=== PATIENT | female | born 1995 | race African-American/Black ===

== ENCOUNTER 2023-06-02 19:33 | Outpatient (REF) | payer MEDICAID, SELFPAY ==
[2023-06-03 07:16] LABS: CT PCR NOT DETECTED (Not Detect.); NG PCR NOT DETECTED (Not Detect.)
[2023-06-05 11:29] LABS: BV Int Neg Control Negative (Negative); BV Int Pos Control Positive (Positive)
== END 2023-06-02 19:34 | disposition home or self-care (01) ==
LOC: HO.HHCLNP 19:33
PROVIDERS: Visit Provider Family Medicine
DX: N93.9 Abnormal uterine and vaginal bleeding, unspecified (principal); Z20.2 Contact with and (suspected) exposure to infections with a predominantly sexual mode of transmission
CPT/HCPCS: 0353U; 87480; 87510; 87660

== ENCOUNTER 2023-06-05 15:22 | Outpatient (REF) | payer MEDICAID, SELFPAY | END 2023-06-05 15:23 | disposition home or self-care (01) | LOC: HO.CHCLDS 15:22 | PROVIDERS: Visit Provider Family Medicine | DX: N93.9 Abnormal uterine and vaginal bleeding, unspecified (principal) | CPT/HCPCS: 87086 ==

== ENCOUNTER 2023-12-12 14:01 | Outpatient (REF) | payer MEDICAID, SELFPAY ==
[2023-12-14 23:58] LABS: C. trachomatis RNA TMA NOT DETECTED (NOT DETECTED); Candida glabrata RNA NOT DETECTED (NOT DETECTED); Candida species RNA NOT DETECTED (NOT DETECTED); N. gonorrhoeae RNA TMA NOT DETECTED (NOT DETECTED); Trichomonas vaginalis RNA NOT DETECTED (NOT DETECTED)
== END 2023-12-12 14:02 | disposition home or self-care (01) ==
LOC: HO.CHCLNP 14:01
PROVIDERS: Visit Provider Advanced Practice Midwife
DX: N93.9 Abnormal uterine and vaginal bleeding, unspecified (principal); Z11.3 Encounter for screening for infections with a predominantly sexual mode of transmission
CPT/HCPCS: 36415; 81513; 87481; 87491; 87591; 87661

== ENCOUNTER 2024-04-22 11:12 | Outpatient (REF) | payer MEDICAID, SELFPAY ==
[2024-04-22 14:15] LABS: MANUAL DIFF FLAG NO
[2024-04-22 14:25] LABS: Basophils Percent Auto 0.6 % (0-2); Eosinophils Absolute Auto 0.1 X10*3/uL (0.0-0.4); Eosinophils Percent Auto 2.2 % (0-4); Hematocrit 39.5 % (37.0-47.0); Hemoglobin 12.7 g/dl (12.0-16.0); Imm Gran Abs Auto 0.01 X10*3/uL (0.00-0.03); Imm Gran Pct Auto 0.2 % (0.0-0.4); Lymphocytes Absolute Auto 2.2 X10*3/uL (1.2-4.9); Lymphocytes Percent Auto 46.9 % (20-40); Mean Corpuscular HGB Conc 32.2 g/dl (31.0-35.0); Mean Corpuscular Hemoglobin 29.6 pg (27.0-33.0); Mean Corpuscular Volume 92.1 fL (80.0-98.0); Monocytes Absolute Auto 0.3 X10*3/uL (0.1-1.2); Monocytes Percent Auto 6.9 % (2-11); Neutrophils Percent Auto 43.2 % (45-73); Platelet Count 352 X10*3/uL (160-400); Red Blood Count 4.29 X10*6/uL (4.20-5.50); Red Cell Distribution Width 13.3 % (11.0-16.0); White Blood Count 4.6 X10*3/uL (4.8-10.8)
[2024-04-22 15:10] LABS: Alanine Aminotransferase 18 U/L (0-31); Albumin Level 4.2 g/dL (3.5-5.0); Alkaline Phosphatase 38 U/L (39-117); Anion Gap 10 (12-20); Aspartate Amino Transferase 17 U/L (5-31); Bilirubin Total 0.4 mg/dL (0.0-1.0); Blood Urea Nitrogen 12 mg/dL (9-16); Calcium 9.3 mg/dL (8.4-10.2); Carbon Dioxide 26 mmol/L (22-29); Chloride 106 mmol/L (96-108); Estimated Glomerular Filt Rate > 60; Glucose Random 78 mg/dL (60-115); Iron 129 mcg/dL (30-160); Percent Iron Saturation 43 % (15-50); Potassium 3.8 mmol/L (3.3-5.1); Sodium 138 mmol/L (135-145); Total Iron Binding Capacity 300 mcg/dL (228-428); Total Protein 7.5 g/dL (6.5-8.0); Unsaturated Iron Binding 171 ug/dL
[2024-04-22 15:14] LABS: Ferritin 107 ng/mL (10-122); TSH reflex Free T4 0.47 uIU/mL (0.32-4.0); Vitamin D 25-OH Total 11.7 ng/mL (>30)
[2024-04-22 15:24] LABS: Folate 5.4 ng/mL (> or = 4.0); Vitamin B12 316 pg/mL (200-900)
[2024-04-22 16:34] LABS: CT PCR NOT DETECTED (Not Detect.); NG PCR NOT DETECTED (Not Detect.)
[2024-04-23 07:37] LABS: HIV AB/AG Nonreactive (Nonreactive); HIV Num 1 0.06 S/CO (0.00-0.99); ~HepC Num1 0.14 S/CO (0.00-0.79); ~Hepatitis C Antibody Nonreactive (Nonreactive)
[2024-04-23 07:44] LABS: Syphilis Screen Nonreactive (Nonreactive)
[2024-04-24 23:58] LABS: TS Negative Control Passed; TS Panel A 0; TS Panel B 1; TS Positive Control Passed; TSpotTB Negative (Negative)
== END 2024-04-22 11:13 | disposition home or self-care (01) ==
LOC: HO.CHCLDS 11:12
PROVIDERS: Visit Provider Family Medicine
DX: R53.83 Other fatigue (principal); Z11.3 Encounter for screening for infections with a predominantly sexual mode of transmission
CPT/HCPCS: 0353U; 36415; 80053; 82306; 82607; 82728; 82746; 83540; 84443; 85025; 86481; 86780; 86803; 87389

== ENCOUNTER 2025-02-14 15:57 | Outpatient (REF) | payer MEDICAID, SELFPAY ==
--- OUTSIDE RECORDS SUMMARY | 2025-02-14 16:57 | XMS_ITS | Encounter Summary ---
Author Organization [employer] Address [address] 7t [place] [address] Care Team Providers Care Homicide Investigator Name Role Phone Gerri Bustamante MD Primary Care Provider [phone] Reason for Visit * Reason Onset Date Comments Referral 05/24/2024 Encounter Details Date Type Department Care Team ([facility] st Contact Info) Description 05/24/2024 Telephone [facility] MEDICINE [address] [place] [address] Gerri Bustamante MD [address] [place] [address] Referral Social History Tobacco Use Types Packs/Day Years Used Date Smoking Tobacco: Never Passive Smoke Exposure: Never Smokeless Tobacco: Never Alcohol Use Standard Drinks/Week Comments Defer 0 (1 standard drink = 0.6 oz pur e alcohol) Depression Answer Date Recorded Patient Health Questionnaire-9 Score 6 04/22/2024 Patient Health Questionnaire-9 Score 6 04/22/2024 Last PHQ-9: Questionnaire Data Not on file 0 04/22/2024 Housing Stability Answer Date Recorded What is your housing situation today? I have richard mclean 04/15/[address] you li ve. Do you have problems with any of the following? None of the above 04/15/2024 Food Insecurity Answer Date Recorded Within the past 12 months, y ou worried that your food would run out before you got money to buy more: Never True 04/15/2024 Within the past 12 months,th e food you bought just didn't last and you didn't have enough money to get more: Never True 01/2024 Transportation Answer Date Recorded In the past 12 months, has l ack of transportation kept you from medical appts, meetings, work or from getting things needed for daily living? No 04/15/2024 Utilities Answer Date Recorded In the past 12 months, has t he electric, gas, oil or water company threatened to shut off services in your home? No 04/15/2024 Depression Answer Date Recorded Patient Health Questionnaire-2 Score 1 04/22/2024 Comments No Sex and Gender Information Value Date Recorded Sex Assigned at Female 09/12/2022 10:34 AM EDT Legal Sex Female 10:34 AM EDT Gender Identity Female 09/12/2022 10:34 AM EDT Sexual Orientation Choose not to disclose 2021 10:34 AM EDT documented as of this encounter Miscellaneous Notes * Telephone Encounter - Dario Farias - 05/24/2024 11:01 AM EDT Tc from patient calling to requesting the status of the referral for a GI states Colon is inflamed gag writer does not see any referrals put in place documented in this encounter Plan of Treatment Not on file documented as of this encounter Visit Diagnoses Not on filedocumented in this encounter Additional Health Concerns Assessment Noted Time PHQ-9 Depression Total Score: 6 04/22/20 24 10:51 AM EDT documented as of this encounter Care Teams Homicide Investigator Relationship Specialty Start Date End Date Gerri Bustamante MD [address] [place] [address] PCP - General Family Medicine 09/03/18 documented as of this encounter
--- OUTSIDE RECORDS SUMMARY | 2025-02-14 16:57 | XMS_ITS | Encounter Summary ---
Author Organization [employer] Address [address] [place] [address] 7t [place] [address] Care Team Providers Care Leather Parts Matcher Name Role Phone Gerri Bustamante MD Primary Care Provider [phone] Reason for Visit * Reason Comments Med Change Request Encounter Details Date Type Department Care Team ([facility] st Contact Info) Description 06/29/2023 Refill [facility] [address] [place], [place] [phone] Gerri Bustamante MD [address] [place] [address] Social History Tobacco Use Types Packs/Day Years Used Date Smoking Tobacco: Never Smokeless Tobacco: Never Alcohol Use Standard Drinks/Week Comments Defer 0 (1 standard drink = 0.6 oz pur e alcohol) Depression Answer Date Recorded Patient Health Questionnaire-9 Score 0 04/13/2023 Depression Answer Date Recorded Patient Health Questionnaire-2 Score 0 04/13/2023 Comments No Sex and Gender Information Value Date Recorded Sex Assigned at Female 09/12/2022 10:34 AM EDT Legal Sex Female 10:34 AM EDT Gender Identity Female 09/12/2022 10:34 AM EDT Sexual Orientation Choose not to disclose 2021 10:34 AM EDT documented as of this encounter Plan of Treatment Not on file documented as of this encounter Visit Diagnoses Not on filedocumented in this encounter Additional Health Concerns Assessment Noted Time PHQ-9 Depression Total Score: 0 04/13/20 23 1:10 PM EDT documented as of this encounter Care Teams Leather Parts Matcher Relationship Specialty Start Date End Date Gerri Bustamante MD [address] [place] [address] PCP - General Family Medicine 09/03/18 documented as of this encounter
--- OUTSIDE RECORDS SUMMARY | 2025-02-14 16:57 | XMS_ITS | Encounter Summary ---
Author Organization [employer] Address [address] 7[address] [place] [address] Care Team Providers Care Adobe Layer Name Role Phone Gerri Bustamante MD Primary Care Provider [phone] Reason for Visit * Reason Comments Med Change Request Encounter Details Date Type Department Care Team ([facility] st Contact Info) Description 06/15/2024 Refill [facility] [address] [place], [place] [phone] Dolores Meadows MD [address] [place] [address] Social History Tobacco Use Types Packs/Day Years [...] documented as of this encounter Care Teams Adobe Layer Relationship Specialty Start Date End Date Gerri Bustamante MD [address] [place] [address] PCP - General Family Medicine 09/03/18 documented as of this encounter
--- OUTSIDE RECORDS SUMMARY | 2025-02-14 16:57 | XMS_ITS | Encounter Summary ---
Author Organization [employer] Address [address] 7t [place] [address] Care Team Providers Care Supervisor Securities Vault Name Role Phone Gerri Bustamante MD Primary Care Provider [phone] Encounter Details Date Type Department Care Team ([facility] st Contact Info) Description 02/14/2025 3:40 PM EDT Office Visit [facility] MED & PEDS [address] [place], [place] [phone] Gerri Bustamante MD [address] [place] [address] Acute vaginitis (Primary Dx) Social History Tobacco Use Types Packs/Day Years [...] AM EDT documented as of this encounter Last Filed Vital Signs Vital Sign Reading Time Taken Comments Blood Pressure 124/76 02/14/2025 2:33 PM EDT Pulse 86 02/14/2025 2:33 PM EDT Temperature 37.5 ??C (99.5 ??F) 02/14/2025 2:33 PM ED T Respiratory Rate 20 02/14/2025 2:33 PM EDT Oxygen Saturation 98% 02/14/2025 2:33 PM EDT Inhaled Oxygen Concentration - - Weight 71.6 kg (157 lb 12.8 oz) 02/14/2025 2:33 PM EDT Height 165.1 cm (5' 5 ) 02/14/2025 2:33 PM EDT Body Mass Index 26.26 02/14/2025 2:33 PM EDT documented in this encounter Progress Notes * Gerri Bustamante MD - 02/14/2025 3:40 PM EDT Subjective Patient ID: Vanessa Persaud is a 29 y.o. female who presents for No chief complaint on file.. Vaginal Discharge The patient's primary symptoms include genital itching and vaginal discharge. This is a recurrent problem. The current episode started in the past 7 days. The problem occurs constantly. The problem has been gradually worsening. The patient is experiencing no pain. She is sexually active. Review of Systems Genitourinary: Positive for vaginal discharge. Objective Physical Exam Genitourinary: Vagina: Vaginal discharge present. Assessment/Plan Diagnoses and all orders for this visit: Acute vaginitis Comments: Mostly BV Started On Flagyl BId for 7 days advised to keep area clean Educated about safe sex Orders: - POCT Urinalysis Other orders - metroNIDAZOLE (Flagyl) 500 MG tablet; Take 1 tablet (500 mg) by mouth 2 times daily for 7 days. documented in this encounter Miscellaneous Notes * Addendum Note - Chino Ahmadi [place] - 02/14/2025 3:40 PM EDTAddended by: CHINO AHMADI on: 02/14/2025 03:28 PM Modules accepted: Orders documented in this encounter Plan of Treatment Scheduled Orders Name Type Priority Associated Diagnoses Orde r Schedule Chlamydia/N. Gonorrhoeae RNA, TMA, Urogenitial Microbiology Routine Acute vaginitis Ordered: 02/14/2025 Bacterial Vaginosis Panel Microbiology Routine Acute vaginitis Ordered: 02/14/2025 documented as of this encounter Procedures Procedure Name Priority Date/Time Associated Diagnosis Comments POCT URINALYSIS DIPSTICK Routine 02/14/2025 2:48 PM EDT Acute vaginitis documented in this encounter Results * POCT Urinalysis (02/14/2025 2:48 PM EDT) Color, UA Yellow Clarity, UA Clear Glucose, UA Negative Bilirubin, UA Negative Ketones, UA Negative Spec Grav, UA 1.020 Blood, UA Negative Negative, None Detected pH, UA 7.0 Protein, UA Negative Urobilinogen, UA 1.0 Leukocytes, UA Negative Negative, Rare, Trace Nitrite, UA Negative Negative, None Detected Appearance, UA clear QC Media Lot # [id number] Lot# Expiration Date Urine 02/14/2025 2:48 PM EDT Gerri Bustamante MD POINT OF CARE TEST ENTER/EDIT OR DERABLES Final Result documented in this encounter Visit Diagnoses Diagnosis Acute vaginitis- Primary Unspecified vaginitis and vulvovaginitis documented in this encounter Additional Health Concerns Assessment Noted Time PHQ-9 Depression Total Score: 6 04/22/20 10:51 AM EDT documented as of this encounter Care Teams Supervisor Securities Vault Relationship Specialty Start Date End Date Gerri Bustamante MD [address] [place] [id number] PCP - General Family Medicine 09/03/18 documented as of this encounter
--- OUTSIDE RECORDS SUMMARY | 2025-02-14 16:57 | XMS_ITS | Clinical Summary ---
Author Organization [employer] Address [address] [facility] 7t [place] [address] Care Team Providers Care Nutrient Management Specialist Name Role Phone Gerri Bustamante MD Primary Care Provider [phone] Allergies No known active allergies Medications Low-Ogestrel 0.3-30 MG-MCG tablet TAKE 1 TABLET BY MOUTH EVERY MORNING 84 tablet 3 04/15/2024 Active cholecalciferol (Vitamin D-3) 50 MCG (2000 UT) capsule Take 1 capsule (50 mcg) by mouth Once per day. 120 capsule 3 04/23/2024 Active ergocalciferol (Vitamin D2) 1.25 MG (44638 UT) capsule Take 1 capsule (1.25 mg) by mouth 1 (one) time per week. 8 capsule 04/23/2024 Active metroNIDAZOLE (Flagyl) 500 MG tablet Take 1 tablet (500 mg) by mouth 2 times daily for 7 days. 14 tablet 02/14/2025 5 Active Active Problems Problem Noted Date Diagnosed Date Physical exam, annual 04/22/2024 Assessment & Plan (04/22/2024 12:08 PM EDT): Ordering Lab Work for further evaluation. Discussed immunizations due, she declined administration today. Ordering STI/STD testing. Encounters Date Type Department Care Team Description 02/14/2025 3:40 PM EDT Office Visit [facility] CHC MED & PEDS [address] [place] [address] Gerri Bustamante MD Acute vaginitis (Primary Dx) 02/14/2025 Travel 02/13/2025 Telephone [facility] MEDICINE [address] [place] [address] Gerri Bustamante MD Appointment Request 01/24/2025 Population Health Risk Score [facility] () Department [address] [place] [address], [place] [address] Provider, Population Health Generic from Last 3 Months Immunizations Name Administration Dates Next Due HPV, Quadrivalent 10/15/2015,07/02/2015,03/13/20 15 Hep B, adult 04/27/2022,02/10/2022,12/28/2021 Influenza injectable quadriv alent IIV4 with preservative 09/03/2018 Influenza injectable quadriv alent preservative free 11/16/2022,12/16/2021 Influenza, IIV3, injectable 07/27/2012, 2 Pfizer Covid-19 Vaccine 12+ wale-sucrose (Gorman Cap) 01/26/2022 Tdap 09/03/2018,08/16/2012 Varicella 02/10/2022,12/28/2021 Family History Medical History Relation Name Comments Fibromyalgia Mother Cervical cancer Other aunts Relation Name Status Comments Mother Other Social History Tobacco Use Types Packs/Day Years Used Date Smoking Tobacco: Never Passive Smoke Exposure: Never Smokeless Tobacco: Never Tobacco Cessation:Counseling Given: Not Answered Alcohol Use Standard Drinks/Week Comments Defer 0 [...] not to disclose 2021 10:34 AM EDT Last Filed Vital Signs Vital Sign Reading [...] Mass Index 26.26 02/14/2025 2:33 PM EDT Plan of Treatment Health Maintenance Due Date Last Done Comments Alcohol/Substance Use Screening 2006 Family Planning (PISQ) 2009 HPV/Cotest 2024 COVID-19 Vaccine ( season) 2024 09/09/2022, 01/26/2022, 08/10/2021, Additional history exists Influenza Vaccine (#1) 2024 , 12/16/2021, 09/03/2018, Additional history exists Cervical Cancer Screening 02/15/2025 Pap Smear 02/15/2025 02/15/2022 SDOH Screening 04/15/2025 04/15/2024 Depression Screening 04/22/2025 04/22/2024, 04/22/20 24 Tobacco Screening 04/22/2025 04/22/2024 DTaP/Tdap/Td Vaccines (3 - Td or Tdap) 09/03/2028 09/03/2018, 08/16/2012 Zoster Vaccines (1 of 2) 2044 RSV Patients and Patients Aged 60 years or older (1 - 1-dose 75+ series) 2069 HPV Vaccines Completed 10/15/2015, 06/14, 03/13/2015 Hepatitis B Vaccines Completed 04/27/2022, 02/10/2022, 12/28/2021 HIV Screening Completed 04/22/2024, 02/17/2022 Hepatitis C Screening Completed 04/22/2024, 022 HIB Vaccines Aged Out No longer eligi ble based on patient's age to complete this topic Hepatitis A Vaccines Aged Out No long er eligible based on patient's age to complete this topic IPV Vaccines Aged Out No longer eligi ble based on patient's age to complete this topic Meningococcal Vaccine Aged Out No gloria armaan eligible based on patient's age to complete this topic Pneumococcal Vaccine: Pediatrics (0 to 5 Years) and At-Risk Patients (6 to 49) Years) Aged Out No longer eligible based on patient's age to complete this topic RSV under 20 months Aged Out No longe r eligible based on patient's age to complete this topic Rotavirus Vaccines Aged Out No longer eligible based on patient's age to complete this topic Procedures Procedure Name Priority Date/Time Associated Diagnosis Comments POCT URINALYSIS DIPSTICK Routine 02/14/2025 2:48 PM EDT Acute vaginitis HEPATITIS C AB W/REFL TO HCV RNA, QN, PCR Routine 04/22/2024 11:15 AM EDT Routine screening for STI (sexually transmitted infection) HIV 1/2 ANTIGEN/ANTIBODY, FOURTH GENERATION W/RFL Routine 04/22/2024 11:15 AM EDT Routine screening for STI (sexually transmitted infection) THINPREP IMAGING SYSTEM PAP Routine 02/15/2022 4:00 PM EDT from Last 3 Months or Most Recently Relevant to Health Maintenance Results * POCT Urinalysis (02/14/2025 2:48 PM [...] CARE TEST ENTER/EDIT OR DERABLES Final Result * Hepatitis C Antibody with Reflex to HCV, RNA, Quantitative, Real-Time PCR (04/22/2024 11:15 AM EDT) Pathologist [facility] Hepatitis C Antibody Nonreactive Nonreactive [facility] Comment:Antibodies to HCV no t detected; does not exclude early acuteHCV infection. Blood Venous blood specimen / Unknown 04/22/2024 11:15 AM EDT 04/22/2024 2:20 PM EDT Dolores Meadows MD LAB BLOOD ORDERABLES Final Re sult [facility] [address] [place] [phone] * HIV-1/2 Antigen and Antibodies, Fourth Generation, with Reflexes (04/22/2024 11:15 AM EDT) HIV AB/AG Nonreactive Nonreactive [facility] Comment:HIV-1 p24 Ag and/or HIV-1/HIV-2 Ab not detected.A test result that is nonreactive does not exclude thepossibility of exposure to or infection with HIV-1 and/orHIV-2. Nonreactive results in this assay for individualswith prior exposure to HIV-1 and/or HIV-2 may be due toantigen and antibody levels that are below the limit ofdetection of this assay.[employer] HIV Ag/Ab Combo assay result andsupplemental assay results should be interpreted inconjunction with the patient's clinical presentation,history and other laboratory results. If the results areinconsistent with clinical evidence, additional testing issuggested to confirm the result. Blood Venous blood specimen / Unknown 04/22/2024 11:15 AM EDT 04/22/2024 2:20 PM EDT us Dolores Meadows MD LAB BLOOD ORDERABLES Final Re sult [facility] [address] [place] [phone] * THINPREP TIS PAP (02/15/2022 4:00 PM EDT) Clinical Information: None given [facility] COMMENT SEE COMMENT [facility] Comment: EXPLANATORY NOTE: ? The Pap is a screening test for cervical cancer. It is ?? not a diagnostic test and is subject to false negative ?? and false positive results. It is most reliable when a ?? satisfactory sample, regularly obtained, is submitted ?? with relevant clinical findings and history, and when ?? the Pap result is evaluated along with historic and ?? current clinical information. ?? COMMENT: This Pap test has been evaluated with computer assisted technology. [facility] Monumental Stonemason : SEE COMMENT [facility] Comment: ALS, CT(ASCP) CT screening location: [address] ??[address] Infection Shift in vaginal mona suggestive of bacterial vaginosis. [facility] Interpretation/R esult: Negative for intraepithelial lesion or malignancy. [facility] LMP: 01/13/22 [facility] Prev. BX: NONE GIVEN [facility] Prev. PAP: NONE [facility]IVEN [facility] SOURCE: None given [facility] Statement Of Adequacy: SEE COMMENT [facility] Comment: Satisfactory for evaluation. Endocervical/transformation zone component present. 02/15/2022 4:00 PM EDT us Petty RAVIM LAB PATHOLOGY ORDERABLES Final Result [facility] [address] from Last 3 Months or Most Recently Relevant to Health Maintenance Insurance [facility] C3 Care Teams Nutrient Management Specialist Relationship Specialty Start Date End Date Gerri Bustamante MD [address] [place] [id number] PCP - General Family Medicine 09/03/18
--- OUTSIDE RECORDS SUMMARY | 2025-02-14 16:57 | XMS_ITS | Clinical Summary ---
Author Organization [facility] Address [address] [facility] [address] [place] [address] Phone Care Team Providers Care Hand Mounter Name Role Phone Gerri Bustamante MD Primary Care Provider [phone] Allergies No known active allergies Medications norgestrel-ethi nyl estradiol (Low-Ogestrel) 0.3-30 MG-MCG per tablet Take 1 tablet by mouth in the morning. 04/13/2023 Active Multiple Vitamin (multivitamin) capsule Take 1 capsule by mouth 1 (one) time each day Active Active Problems Problem Noted Date Diagnosed Date Chronic kidney disease 11/29/2023 Family History Relation Status Comments Father Alive Mother Alive Social History Tobacco Use Types Packs/Day Years Used Date Smoking Tobacco: Never Smokeless Tobacco: Never Tobacco Cessation:Counseling Given: Not Answered Alcohol Use Standard Drinks/Week Comments Yes 0 (1 standard drink = 0.6 oz pur e alcohol) Comments Unknown Sex and Gender Information Value Date Recorded Sex Assigned at Not on file Legal Sex Female 1:17 PM EDT Gender Identity Not on file Sexual Orientation Not on file Last Filed Vital Signs Vital Sign Reading Time Taken Comments Blood Pressure 110/62 11/29/2023 3:20 PM EST Pulse 82 08/24/2023 3:22 PM EDT Temperature - - Respiratory Rate - - Oxygen Saturation 98% 08/24/2023 3:22 PM EDT Inhaled Oxygen Concentration - - Weight 70.8 kg (156 lb) 11/29/2023 3:20 PM EST Height 162.6 cm (5' 4 ) 08/24/2023 3:22 PM EDT Body Mass Index 26.78 08/24/2023 3:22 PM EDT Plan of Treatment Health Maintenance Due Date Last Done Comments Pneumococcal Vaccine: Pediat rics (0 to 5 Years) and At-Risk Patients (6 to 64 Years) (1 of 2 - PCV) 2000 Hepatitis B Vaccine (1 of 3 - 19+ 3-dose series) 2013 04/27/2022, 02/10/2022, 12/28/2021 Influenza Vaccine (Season Ended) 2025 11/16/2022, 12/16/2021, 09/03/2018 Insurance [place] Care Teams Hand Mounter Relationship Specialty Start Date End Date Gerri Bustamante MD [address] [place] [phone] PCP - General Family Medicine 07/24/23
--- OUTSIDE RECORDS SUMMARY | 2025-02-14 16:57 | XMS_ITS | Encounter Summary ---
Author Organization [employer] Address [address] [place] [address] Care Team Providers Care Stretch Machine Operator Name Role Phone Gerri Bustamante MD Primary Care Provider Reason for Visit * Reason Comments Med Refill Encounter Details Date Type Department Care Team ([facility] st Contact Info) Description 10/26/2023 Refill [facility] MEDICINE [address] [place], [place] [phone] Petty Hsieh, BREONNA [address] [place] [address] Social History Tobacco Use Types Packs/Day Years Used Date Smoking Tobacco: Never Smokeless Tobacco: Never Alcohol Use Standard Drinks/Week Comments Defer 0 (1 standard drink = 0.6 oz pur e alcohol) Depression Answer Date Recorded Patient Health Questionnaire-9 Score 0 04/13/2023 Housing Stability Answer Date Recorded What is your housing situation today? I have richard mclean 09/11/[address] you li ve. Do you have problems with any of the following? None of the above 09/11/2023 Food Insecurity Answer Date Recorded Within the past 12 months, y ou worried that your food would run out before you got money to buy more: Never True 09/11/2023 Within the past 12 months,th e food you bought just didn't last and you didn't have enough money to get more: Never True Transportation Answer Date Recorded In the past 12 months, has l ack of transportation kept you from medical appts, meetings, work or from getting things needed for daily living? No 09/11/2023 Utilities Answer Date Recorded In the past 12 months, has t he electric, gas, oil or water [employer] threatened to shut off services in your home? No 09/11/2023 Depression Answer Date Recorded Patient Health Questionnaire-2 [...] documented as of this encounter Care Teams Stretch Machine Operator Relationship Specialty Start Date End Date Gerri Bustamante MD [address] [place] [address] PCP - General Family Medicine 09/03/18 documented as of this encounter
--- OUTSIDE RECORDS SUMMARY | 2025-02-14 16:57 | XMS_ITS | Encounter Summary ---
Author Organization [employer] Address [address] 7t [place] [address] Care Team Providers Care Stripping Shovel Oiler Name Role Phone Gerri Bustamante MD Primary Care Provider [phone] Reason for Visit * Reason Onset Date Comments Appointment Request 02/13/2025 Encounter Details Date Type Department Care Team ([facility] st Contact Info) Description 02/13/2025 Telephone [facility] MEDICINE [address] [place] [address] Gerri Bustamante MD [address] [place] [address] Appointment Request Social History Tobacco Use Types Packs/Day Years [...] encounter Miscellaneous Notes * Telephone Encounter - Karyna Vitale RN - 02/13/2025 3:56 PM EDT TC returned from pt. 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 Author advised to have pt upload a picture of requirements for nursingschool through [employer] to ensure correct orders are placed. Pt stated would upload list today. Author advised pt to reach out to [facility] nursing school program and ask if there is a medical clearance waiver that PCP can sign rather than submitting a new physical. Pt stated would reach out to school andask, stated if so will up load it to [employer]. Author advised that if pt does will have to come to office to picking table worker signed form. Pt verbalized understanding. Pt stated would also like appointment tomorrow because she is having urinary frequency, urgency, and vaginal discharge. [facility] appointment made for 02/14/25 at 2:00PM. Author advised pt to drink plenty of fluids, bathroom hygiene habits, and advised on WIC hours tomorrow morning if pt symptoms worsen and cannot wait until afternoon. Pt verbalized understanding and agreement with plan. * Telephone Encounter - Karyna Vitale RN - 02/13/2025 3:32 PM EDT TC to pt to discuss school requirements. Verified pt identity. Verified reason for original pt call. As pt began to answer phone call dropped. Author attempted to call back and call went straight to voicemail. 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 Office phone number left in voicemail. 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 Wafer Line Worker advised physical is not due yet since it was done 04/2024 and is 1x a year , and insurance will not cover if copy needed could go to and get a copy.Pt verbalized I understand but they're requesting a new physical before 04/01 since school first day. Please return call [phone] documented in this encounter Plan of Treatment Not on file documented as of this encounter Visit Diagnoses Not on filedocumented in this encounter Additional Health Concerns Assessment Noted Time PHQ-9 Depression Total Score: 6 04/22/20 24 10:51 AM EDT documented as of this encounter Care Teams Stripping Shovel Oiler Relationship Specialty Start Date End Date Gerri Bustamante MD [address] [place] [address] PCP - General Family Medicine 09/03/18 documented as of this encounter
--- OUTSIDE RECORDS SUMMARY | 2025-02-14 16:57 | XMS_ITS | Encounter Summary ---
Author Organization [employer] Address [address] [address] 7t [place] [address] Care Team Providers Care Street Cleaning Equipment Operator Name Role Phone Gerri Bustamante MD Primary Care Provider [phone] Reason for Visit * Reason Onset Date Comments Order(s) 01/31/2024 Encounter Details Date Type Department Care Team ([facility] st Contact Info) Description 01/31/2024 Telephone [facility] MEDICINE [address] [place] [address] Gerri Bustamante MD [address] [place] [address] Order(s) Social History Tobacco Use Types Packs/Day Years [...] encounter Miscellaneous Notes * Telephone Encounter - Andre Cardenas RN - 02/01/2024 2:14 PM EDT T/C to [phone] regarding updated order. Naissa verbally agreed and understood. * Telephone Encounter - Petty Hsieh CNM - 02/01/2024 8:08 AM EDT Order updated. Sorry about that, I thought I ordered CT pelvis. Should be all set now. Please let [facility] know * Telephone Encounter - Damon Marcus - 01/31/2024 11:27 AM EDT Tc from Aram with [facility] calling in regards to order that was sent for CT of abdomen with and without contrast. Aram stated with diagnosis order should be a CT scan of the pelvis with and without contrast. Any questions you can contact Aram at [phone]. documented in this encounter Plan of Treatment Not on file documented as of this encounter Visit Diagnoses Not on filedocumented in this encounter Additional Health Concerns Assessment Noted Time PHQ-9 Depression Total Score: 0 04/13/20 23 1:10 PM EDT documented as of this encounter Care Teams Street Cleaning Equipment Operator Relationship Specialty Start Date End Date Gerri Bustamante MD [address] [place] [address] PCP - General Family Medicine 09/03/18 documented as of this encounter
--- OUTSIDE RECORDS SUMMARY | 2025-02-14 16:57 | XMS_ITS | Encounter Summary ---
Author Organization [employer] Address [address] 7t [place] [address] Care Team Providers Care Yarn Hauler Name Role Phone Gerri Bustamante MD Primary Care Provider Reason for Visit * Reason Onset Date Comments Results 01/30/2024 Encounter Details Date Type Department Care Team ([facility] st Contact Info) Description 01/30/2024 Telephone [facility] MEDICINE [address] [place] [address] Gerri Bustamante MD [address] [place], [place] [phone] Results Social History Tobacco Use Types Packs/Day Years [...] encounter Miscellaneous Notes * Telephone Encounter - Petty Hsieh CNM - 01/31/2024 7:59 AM EDT Noted, thanks. Not sure if that would be from hernia, but CT will get more information * Telephone Encounter - Marlene De La Torre RN - 01/30/2024 6:24 PM EDT TC placed to patient regarding ultrasound results, follow-up CT recommendation, and pre-CT bloodwork ordered per notes from Nick Hsieh. Patient expressed understanding of all and states she had anumbilical hernia and wonders if that could have contributed to what was seen on US. Patient will cyndy for bloodwork this , 02/01/24, and will await call to schedule CT scan. Routing back to Nick Hsieh and PCP for review. * Telephone Encounter - Petty Hsieh CNM - 01/30/2024 2:52 PM EDT I also ordered pre CT BUN/creatinine as she will likely needs bloodwork before CT * Telephone Encounter - Petty Hsieh CNM - 01/30/2024 2:47 PM EDT Pelvic ultrasound reviewed - indeterminate structure noted next to right ovary which could be loop of intestine, but unclear. CT advised, which I will order, but this ultrasound result should have been routed to provider review when results first came in. This is the first I am seeing of this ultrasound. Please followup to see why this was not previously reviewed. Thanks! * Telephone Encounter - Dario Farias - 01/30/2024 2:06 PM EDT TC from pt requesting call back regarding Results. Type of results: SureSwab ,Us Pelvis complete and US Pelvis Transvaginal Date when done: 12/12 [place] [facility] documented in this encounter Plan of Treatment Not on file documented as of this encounter Visit Diagnoses Not on filedocumented in this encounter Additional Health Concerns Assessment Noted Time PHQ-9 Depression Total Score: 0 04/13/20 23 1:10 PM EDT documented as of this encounter Care Teams Yarn Hauler Relationship Specialty Start Date End Date Gerri Bustamante MD [address] [place] [address] PCP - General Family Medicine 09/03/18 documented as of this encounter
--- OUTSIDE RECORDS SUMMARY | 2025-02-14 16:57 | XMS_ITS | Encounter Summary ---
Author Organization [employer] Address [address] 7t [place] [address] Care Team Providers Care Lump Room Supervisor Name Role Phone Gerri Bustamante MD Primary Care Provider [phone] Encounter Details Date Type Department Care Team ([facility] st Contact Info) Description 05/15/2024 Orders Only [facility] CHC MED & PEDS [address] [place], [place] [phone] ProviderLou MD Social History Tobacco Use Types Packs/Day Years [...] on file documented as of this encounter Procedures Procedure Name Priority Date/Time Associated Diagnosis Comments CT ABDOMEN PELVIS W AND WO CONTRAST Routine 05/14/2024 9:09 AM EDT documented in this encounter Results * CT Abdomen Pelvis w/ and w/o Contrast (05/14/2024 9:09 AM EDT) Anatomical Region Laterality Modality Body, Pelvis, Abdomen Computed T omography us Historical Provider MD GAYLE CT PROCEDURES Final R esult documented in this encounter Visit Diagnoses Not on filedocumented in this encounter Additional Health Concerns Assessment Noted Time PHQ-9 Depression Total Score: 6 04/22/20 24 10:51 AM EDT documented as of this encounter Care Teams Lump Room Supervisor Relationship Specialty Start Date End Date Gerri Bustamante MD [address] [place] [address] PCP - General Family Medicine 09/03/18 documented as of this encounter
--- OUTSIDE RECORDS SUMMARY | 2025-02-14 16:57 | XMS_ITS | Encounter Summary ---
Author Organization [employer] Address [address] [place] [address] 7t [place] [address] Care Team Providers Care Defence Force Senior Officer Name Role Phone Gerri Bustamante MD Primary Care Provider [phone] Encounter Details Date Type Department Care Team ([facility] st Contact Info) Description 06/28/2023 Orders Only [facility] CHC MED & PEDS [address] [place], [place] [phone] Liberty Lemos MD 505 [place] [address] Proteinuria, unspecified type (Primary Dx) Social History Tobacco Use Types [...] documented as of this encounter Visit Diagnoses Diagnosis Proteinuria, unspecified type- Primary documented in this encounter Additional Health Concerns Assessment Noted Time PHQ-9 Depression Total Score: 0 04/13/20 23 1:10 PM EDT documented as of this encounter Care Teams Defence Force Senior Officer Relationship Specialty Start Date End Date Gerri Bustamante MD [address] [place] [address] PCP - General Family Medicine 09/03/18 documented as of this encounter
--- OUTSIDE RECORDS SUMMARY | 2025-02-14 16:57 | XMS_ITS | Encounter Summary ---
Author Organization [employer] Address [address] [facility] [address] [facility] [address]t [place] [address] Care Team Providers Care Coupler Name Role Phone Gerri Bustamante MD Primary Care Provider [phone] Encounter Details Date Type Department Care Team (Latest Contact Info) Description 02/14/2025 Travel Social History Tobacco Use Types Packs/Day Years [...] documented as of this encounter Care Teams Coupler Relationship Specialty Start Date End Date Gerri Bustamante MD [address] [place] [address] PCP - General Family Medicine 09/03/18 documented as of this encounter
[2025-02-15 04:36] LABS: CT PCR NOT DETECTED (Not Detect.); NG PCR NOT DETECTED (Not Detect.)
[2025-02-15 13:47] LABS: Bacterial Vaginosis PCR POSITIVE (Negative); Candida Group PCR NOT DETECTED (Not Detect); Candida glab krusei PCR NOT DETECTED (Not Detect); Trichomonas vaginalis PCR NOT DETECTED (Not Detect)
== END 2025-02-14 15:58 | disposition home or self-care (01) ==
LOC: HO.CHCLNP 15:57
PROVIDERS: Visit Provider Student in an Organized Health Care Education/Training Program
DX: N76.0 Acute vaginitis (principal)
CPT/HCPCS: 81515; 87491; 87591

== ENCOUNTER 2025-03-04 15:39 | Outpatient (REF) | payer MEDICAID, SELFPAY ==
--- OUTSIDE RECORDS SUMMARY | 2025-03-04 18:29 | XMS_ITS | Encounter Summary ---
Author Organization [employer] Address [address] [facility] [address] 7t [place] [address] Care Team Providers Care Lead Etl Developer Name Role Phone Gerri Bustamante MD Primary Care Provider [phone] Reason for Visit * Reason Onset Date Comments Results 01/30/2024 Encounter Details Date Type Department Care Team ([facility] Contact Info) Description 01/30/2024 Telephone [facility] MEDICINE 230 [place] [address] Gerri Bustamante MD [address] [place], [place] [phone] Results Social History Tobacco Use Types Packs/Day [...] pre-CT bloodwork ordered per notes from Nick Hsihe. Patient expressed understanding of all and states [...] Pelvis Transvaginal Date when done: 12/12 Facility: [facility] documented in this encounter Plan of Treatment Not on file documented as of this encounter Visit Diagnoses Not on filedocumented in this encounter Additional Health Concerns Assessment Noted Time PHQ-9 Depression Total Score: 0 04/13/20 23 1:10 PM EDT documented as of this encounter Care Teams Lead Etl Developer Relationship Specialty Start Date End Date Gerri Bustamante MD [address] [place] [address] PCP - General Family Medicine 09/03/18 documented as of this encounter
--- OUTSIDE RECORDS SUMMARY | 2025-03-04 18:29 | XMS_ITS | Encounter Summary ---
Author Organization [employer] Address [address] 7t [place] [address] Care Team Providers Care Culinary Worker Name Role Phone Gerri Bustamante MD Primary Care Provider [phone] Reason for Visit * Reason Onset Date Comments Order(s) 01/31/2024 Encounter Details Date Type Department Care Team ([facility] Contact Info) Description 01/31/2024 Telephone [facility] MEDICINE [address] [place] [address] Gerri Bustamante MD [address] [place], [place] [phone] Order(s) Social History Tobacco Use Types Packs/Day [...] - 02/01/2024 2:14 PM EDT T/C to [phone] regarding updated order. Naissa verbally agreed and [...] Any questions you can contact Aram at [phone]. documented in this encounter Plan of Treatment Not on file documented as of this encounter Visit Diagnoses Not on filedocumented in this encounter Additional Health Concerns Assessment Noted Time PHQ-9 Depression Total Score: 0 04/13/20 23 1:10 PM EDT documented as of this encounter Care Teams Culinary Worker Relationship Specialty Start Date End Date Gerri Bustamante MD [address] [place] [address] PCP - General Family Medicine 09/03/18 documented as of this encounter
--- OUTSIDE RECORDS SUMMARY | 2025-03-04 18:29 | XMS_ITS | Clinical Summary ---
Author Organization [facility] Address [address] [facility] [address] [place] [address] Phone Care Team Providers Care Broaching Machine Repairer Name Role Phone Gerri Bustamante MD Primary Care Provider [phone] Allergies No known active allergies Medications norgestrel-ethi [...] Health Maintenance Due Date Last Done Comments Hepatitis B Vaccine (1 of 3 - 19+ 3-dose series) 2013 04/27/2022, 02/10/2022, 12/28/2021 Pneumococcal Vaccine: Peds ( 0 to 5 Years) and At-Risk Patients (6 to 49 Years) (1 of 2 - PCV) 2013 Influenza Vaccine (Season Ended) 2025 11/16/2022, 12/16/2021, 09/03/2018 Insurance Medicaid [place] Medicaid [place] Care Teams Broaching Machine Repairer Relationship Specialty Start Date End Date Gerri Bustamante MD [address] [place] [address] PCP - General Family Medicine 07/24/23
--- OUTSIDE RECORDS SUMMARY | 2025-03-04 18:30 | XMS_ITS | Encounter Summary ---
Author Organization [employer] Address [address] [facility] [facility] [address]t [place] [address] Care Team Providers Care Pattern Stamper Name Role Phone Gerri Bustamante MD Primary Care Provider [phone] Encounter Details Date Type Department Care Team ([facility] Contact Info) Description 03/04/2025 Telephone [facility] CHC MED & PEDS [address] [place], [place] [phone] Gerri Bustamante MD 505 [place] [address] Social History Tobacco Use Types Packs/Day Years [...] as of this encounter Miscellaneous Notes * Addendum Note - Karyna Dinero RN - 03/04/2025 11:18 AM EDTAddended by: KARYNA DINERO on: 03/04/2025 11:18 AM Modules accepted: Orders * Telephone Encounter - Karyna Dinero RN - 03/04/2025 11:13 AM EDT TC to pt. No answer. Voicemail box full and author unable to leave message. * Telephone Encounter - Clarice Waller - 03/04/2025 10:47 AM EDT Tc from pt calling in to inform has done a home test this weekend and it came back positive. was on birthcontrol and antibiotic and has stopped medications but wanted to further discuss with pcp . leaves on vacation this up coming weekend and wanted to see pcp before she leaves. Informs is about 7 weeks . documented in this encounter Plan of Treatment Scheduled Orders Name Type Priority Associated Diagnoses Orde r Schedule hCG, Total, Quantitative Lab Routine Surveillance of previously prescribed contraceptive pill Expected: 03/04/2025 (Approximate), Expires: 03/04/2026 documented as of this encounter Visit Diagnoses Diagnosis Surveillance of previously prescribed contraceptive pill documented in this encounter Additional Health Concerns Assessment Noted Time PHQ-9 Depression Total Score: 6 04/22/20 24 10:51 AM EDT documented as of this encounter Care Teams Pattern Stamper Relationship Specialty Start Date End Date Gerri Bustamante MD 230 [place] [address] PCP - General Family Medicine 09/03/18 documented as of this encounter
--- OUTSIDE RECORDS SUMMARY | 2025-03-04 18:30 | XMS_ITS | Encounter Summary ---
Author Organization [employer] Address [address] [facility] 7t [place] [address] Care Team Providers Care Wound Care Specialist Name Role Phone Gerri Bustamante MD Primary Care Provider [phone] Reason for Visit * Reason Comments Med Change Request Encounter Details Date Type Department Care Team ([facility] st Contact Info) Description 06/29/2023 Refill [facility] CHC MED & PEDS [address] [place], [place] [phone] Gerri Bustamante MD 505 [place] [address] Social History Tobacco Use Types Packs/Day Years [...] documented as of this encounter Care Teams Wound Care Specialist Relationship Specialty Start Date End Date Gerri Bustamante MD [address] [place] [address] PCP - General Family Medicine 09/03/18 documented as of this encounter
--- OUTSIDE RECORDS SUMMARY | 2025-03-04 18:30 | XMS_ITS | Encounter Summary ---
Author Organization [employer] Address [address] [place] [address] 7t [place] [address] Care Team Providers Care Automobile Technician Name Role Phone Gerri Bustamante MD Primary Care Provider Encounter Details Date Type Department Care Team ([facility] st Contact Info) Description 06/28/2023 Orders Only [facility] CHC MED & PEDS 505 [place], [place] [phone] Liberty Lemos MD 505 [place] [address] Proteinuria, unspecified type (Primary Dx) Social History [...] documented as of this encounter Care Teams Automobile Technician Relationship Specialty Start Date End Date Gerri Bustamante MD [address] [place] [address] PCP - General Family Medicine 09/03/18 documented as of this encounter
--- OUTSIDE RECORDS SUMMARY | 2025-03-04 18:30 | XMS_ITS | Encounter Summary ---
Author Organization [employer] Address [address] [facility] [address] 7[address] [place] [address] Care Team Providers Care Inbound Ingredient Logistics Specialist Name Role Phone Gerri Bustamante MD Primary Care Provider [phone] Reason for Visit * Reason Onset Date Comments Referral 05/24/2024 Encounter Details Date Type Department Care Team ([facility] st Contact Info) Description 05/24/2024 Telephone [facility] MEDICINE [address] [place] [address] Gerri Bustamante MD [address] [place] [address] Referral Social History Tobacco Use Types Packs/Day [...] for a GI states Colon is inflamed va underwriter does not see any referrals put in place documented in this encounter Plan of Treatment Not on file documented as of this encounter Visit Diagnoses Not on filedocumented in this encounter Additional Health Concerns Assessment Noted Time PHQ-9 Depression Total Score: 6 04/22/20 24 10:51 AM EDT documented as of this encounter Care Teams Inbound Ingredient Logistics Specialist Relationship Specialty Start Date End Date Gerri Bustamante MD [address] [place] [address] PCP - General Family Medicine 09/03/18 documented as of this encounter
--- OUTSIDE RECORDS SUMMARY | 2025-03-04 18:30 | XMS_ITS | Encounter Summary ---
Author Organization [employer] Address [address] [facility] [address] [place] [address] Care Team Providers Care Managed Care Manager Name Role Phone Gerri Bustamante MD Primary Care Provider [phone] Reason for Visit * Reason Comments Med Refill Encounter Details Date Type Department Care Team (Late st Contact Info) Description 10/26/2023 Refill [facility] MEDICINE 230 [place], [place] [phone] Petty Hsieh, BREONNA [address] [place] [address] Social History Tobacco Use Types Packs/Day Years [...] documented as of this encounter Care Teams Managed Care Manager Relationship Specialty Start Date End Date Gerri Bustamante MD [address] [place] [address] PCP - General Family Medicine 09/03/18 documented as of this encounter
--- OUTSIDE RECORDS SUMMARY | 2025-03-04 18:30 | XMS_ITS | Encounter Summary ---
Author Organization [employer] Address [address] [facility] [address] [facility] [address] [place] [address] Care Team Providers Care Label Fuser Tender Name Role Phone Gerri Bustamante MD Primary Care Provider [phone] Reason for Visit * Reason Comments Med Change Request Encounter Details Date Type Department Care Team ([facility] st Contact Info) Description 06/15/2024 Refill [facility] MED & PEDS [address] [place], [place] [phone] Dolores Meadows MD 505 [place] [address] Social History Tobacco Use Types Packs/Day Years [...] documented as of this encounter Care Teams Label Fuser Tender Relationship Specialty Start Date End Date Gerri Bustamante MD [address] [place] [address] PCP - General Family Medicine 09/03/18 documented as of this encounter
--- OUTSIDE RECORDS SUMMARY | 2025-03-04 18:30 | XMS_ITS | Encounter Summary ---
Author Organization [employer] Address [address] [facility] [address] [place] [address] Care Team Providers Care Customer Service Assistant Name Role Phone Gerri Bustamante MD Primary Care Provider [phone] Encounter Details Date Type Department Care Team ([facility] st Contact Info) Description 05/15/2024 Orders Only [facility] CHC MED & PEDS [address] [place] [address] ProviderLou MD Social History Tobacco Use Types [...] t he electric, gas, oil or water [employer] threatened to shut off services in your [...] documented as of this encounter Care Teams Customer Service Assistant Relationship Specialty Start Date End Date Gerri Bustamante MD 230 [place] [address] PCP - General Family Medicine 09/03/18 documented as of this encounter
--- OUTSIDE RECORDS SUMMARY | 2025-03-04 18:30 | XMS_ITS | Clinical Summary ---
Author Organization [employer] Address [address] [facility] [address] [place] [address] Care Team Providers Care Graphic Design Assistant Name Role Phone Gerri Bustamante MD Primary Care Provider [phone] Allergies No known active allergies Medications Low-Ogestrel 0.3-30 MG-MCG tablet TAKE 1 TABLET BY MOUTH EVERY MORNING 84 tablet 3 04/15/2024 Active cholecalciferol (Vitamin D-3) 50 MCG (2000 UT) capsule Take 1 capsule (50 mcg) by mouth Once per day. 120 capsule 3 04/23/2024 Active ergocalciferol (Vitamin D2) 1.25 MG (51010 UT) capsule Take 1 capsule (1.25 mg) by mouth 1 (one) time per week. 8 capsule 04/23/2024 Active metroNIDAZOLE (Flagyl) 500 MG tablet Take 1 tablet (500 mg) by mouth 2 times daily for 7 days. 14 tablet 02/14/2025 02/22/20 25 Active Problems Problem Noted Date Diagnosed Date Physical exam, annual 04/22/2024 Assessment & Plan (04/22/2024 12:08 PM EDT): Ordering Lab Work for further evaluation. Discussed immunizations due, she declined administration today. Ordering STI/STD testing. Encounters Date Type Department Care Team Description 03/04/2025 Telephone [facility] [address] [facility] [place] [address] Gerri Bustamante MD 02/14/2025 3:40 PM EDT Office Visit [facility] [address] [facility] [place] [place] [address] Gerri Bustamante MD Acute vaginitis (Primary Dx) 02/14/2025 Travel 02/13/2025 Telephone [facility] [address] [place], [place] [phone] Gerri Bustamante MD Appointment Request 01/24/2025 Population Health Risk Score [facility] ([facility] Department [address] [place] [phone] Provider, Population Health Generic from Last 3 [...] 04/15/2025 04/15/2024 Depression Screening 04/22/2025 04/22/2024, 04/22/20 Tobacco Screening 04/22/2025 04/22/2024 DTaP/Tdap/Td Vaccines (3 [...] Procedure Name Priority Date/Time Associated Diagnosis Comments BACTERIAL VAGINOSIS PANEL Routine 02/14/2025 3:59 PM EDT Acute vaginitis CHLAMYDIA/N. GONORRHOEAE RNA, TMA, UROGENITAL Routine 02/14/2025 3:59 PM EDT Acute vaginitis POCT URINALYSIS DIPSTICK Routine 02/14/2025 2:48 PM [...] Recently Relevant to Health Maintenance Results * (ABNORMAL) Bacterial Vaginosis Panel (02/14/2025 3:59 PM EDT) TRICHOMONAS VAGINALIS DETECTION BY PCR NOT DETECTED Not Detect [facility] BACTERIAL VAGINOSIS DETECTION BY PCR POSITIVE(A) Negative [facility] Comment:The BV organism targ ets of the Xpert Xpress MVP test can becommensal in women; Xpert Xpress MVP positive results forbacterial vaginosis should be considered in conjunction withother clinical and patient information to determine thedisease status. Organisms that are not detected by the XpertXpress MVP test have also been reported to be associatedwith BV and aerobic vaginitis.The Xpert Xpress MVP test performance has not been evaluatedin patients under the age of 14. DEMETRIA GROUP DETECTION BY PCR NOT DETECTED Not Detect [facility] Demetria glab krusei PCR NOT DETECTED Not Detect [facility] Swab Vaginal structure / Unknown 02/14/2025 3:59 PM EDT 02/14/2025 5:34 PM EDT us Gerri Bustamante MD LAB MICROBIOLOGY - GENERAL ORDER TRA Final Result [facility] [address] [place] [phone] * Chlamydia/N. Gonorrhoeae RNA, TMA, Urogenitial (02/14/2025 3:59 PM EDT) CT PCR NOT DETECTED Not Detect. [facility] Comment:A not detected test result does not exclude the possibilityof infection because test results can be affected byimproper specimen collection, concurrent antibiotic therapy,or the number of organisms in the specimen which may bebelow the sensitivity of the test. As with many diagnostictests, results from the Xpert CT/NG assay should beinterpreted in conjunction with other laboratory andclinical data available to the clinician.Xpert CT/NG performance has not been evaluated in patientsless than 14 years of age. The assay should not be used forthe evaluationof suspected sexual abuse or for other medico-legalindications. Additional testing is recommended in anycircumstance when false positive or false negative resultscould lead to adverse medical, social or psychologicalconsequences. NG PCR NOT DETECTED Not Detect. [facility] Comment:A not detected test result does not exclude the possibilityof infection because test results can be affected byimproper specimen collection, concurrent antibiotic therapy,or the number of organisms in the specimen which may bebelow the sensitivity of the test. As with many diagnostictests, results from the Xpert CT/NG assay should beinterpreted in conjunction with other laboratory andclinical data available to the clinician.Xpert CT/NG performance has not been evaluated in patientsless than 14 years of age. The assay should not be used forthe evaluationof suspected sexual abuse or for other medico-legalindications. Additional testing is recommended in anycircumstance when false positive or false negative resultscould lead to adverse medical, social or psychologicalconsequences. Swab (Vaginal Swab) 02/14/2025 3:59 PM EDT 02/14/2025 5:34 PM EDT Narrative [facility] - 02/15/2025 4:36 AM EDT Vaginal us Gerri Bustamante MD LAB MICROBIOLOGY - GENERAL ORDER TRA Final Result [facility] [address] [place] [phone] * POCT Urinalysis (02/14/2025 2:48 PM EDT) [...] PCR (04/22/2024 11:15 AM EDT) Pathologist [facility] Hepatitis C Antibody Nonreactive Nonreactive [facility] Comment:Antibodies to HCV no t detected; does not exclude early acuteHCV infection. Blood Venous blood specimen / Unknown 04/22/2024 11:15 AM EDT 04/22/2024 2:20 PM EDT Dolores Meadows MD LAB BLOOD ORDERABLES Final Re sult [facility] [address] [place] [phone] * HIV-1/2 Antigen and Antibodies, Fourth Generation, with Reflexes (04/22/2024 11:15 AM EDT) Pathologist [facility] HIV AB/AG Nonreactive Nonreactive [facility] Comment:HIV-1 p24 Ag and/or HIV-1/HIV-2 Ab not detected.A test result that is nonreactive does not exclude thepossibility of exposure to or infection with HIV-1 and/orHIV-2. Nonreactive results in this assay for individualswith prior exposure to HIV-1 and/or HIV-2 may be due toantigen and antibody levels that are below the limit ofdetection of this assay.The Ad Dynamo HIV Ag/Ab Combo assay result andsupplemental assay results should be interpreted inconjunction with the patient's clinical presentation,history and other laboratory results. If the results areinconsistent with clinical evidence, additional testing issuggested to confirm the result. Blood Venous blood specimen / Unknown 04/22/2024 11:15 AM EDT 04/22/2024 2:20 PM EDT us Dolores Meadows MD LAB BLOOD ORDERABLES Final Re sult Performing Organization Address City/[facility]/ZIP Co de Phone Number [facility] [address] [place] [phone] * THINPREP TIS PAP (02/15/2022 4:00 PM EDT) Clinical Information: None given [facility] COMMENT SEE COMMENT [facility] [...] has been evaluated with computer assisted technology. [facility] Dealer Card Room : SEE COMMENT [facility] Comment: ALS, CT(ASCP) CT screening location: [address] ??[phone] Infection Shift in vaginal mona suggestive of bacterial vaginosis. [facility] Interpretation/R esult: Negative for intraepithelial lesion or malignancy. [facility] LMP: 01/13/22 [facility] Prev. BX: NONE GIVEN [facility] Prev. PAP: NONE GIVEN [facility] SOURCE: None given [facility] Statement Of Adequacy: SEE COMMENT [facility] Comment: Satisfactory for evaluation. Endocervical/transformation zone component present. 02/15/2022 4:00 PM EDT us Petty Hsieh CNM LAB PATHOLOGY ORDERABLES Final Result [facility] [address] [place] [address], [place] from Last 3 Months or Most Recently Relevant to Health Maintenance Insurance [facility] C[facility] Care Teams Graphic Design Assistant Relationship Specialty Start Date End Date Gerri Bustamante MD [address] [place] [phone] PCP - General Family Medicine 09/03/18
[2025-03-04 19:03] LABS: HCG Quantitative 77041 mIU/mL
[2025-03-05 08:27] LABS: HBS Num1 839.95 mIU/mL (0-7.99); ~Hepatitis B Surface Antibody REACTIVE (Nonreactive)
== END 2025-03-04 15:40 | disposition home or self-care (01) ==
LOC: HO.CHCLDS 15:39
PROVIDERS: Visit Provider Student in an Organized Health Care Education/Training Program
DX: Z30.41 Encounter for surveillance of contraceptive pills (principal); Z23 Encounter for immunization
CPT/HCPCS: 36415; 84702; 86706

== ENCOUNTER 2025-04-09 15:48 | Outpatient (REF) | payer MEDICAID, SELFPAY ==
--- OUTSIDE RECORDS SUMMARY | 2025-04-09 16:09 | XMS_ITS | Encounter Summary ---
Author Organization [employer] Address [address] [facility] [address] [place] [address] Care Team Providers Care Candy Maker Helper Name Role Phone Gerri Bustamante MD Primary Care Provider [phone] Reason for Visit * Reason Onset Date Comments Order(s) 01/31/2024 Encounter Details Date Type Department Care Team ([facility] Contact Info) Description 01/31/2024 Telephone [facility] [address] [place] [address] Gerri Bustamante MD [address] [place], [place] [phone] Order(s) Social History Tobacco Use Types Packs/Day [...] - 02/01/2024 2:14 PM EDT T/C to [phone] regarding updated order. Aram verbally agreed and understood. * Telephone Encounter [...] Any questions you can contact Aram at [phone]. documented in this encounter Plan of Treatment Upcoming Encounters Date Type Department Care Team (Late st Contact Info) Description 05/29/2025 9:00 AM EDT Office Visit [facility] [address] [place], [place] [phone] Gerri Bustamante MD [address] [place] [address] documented as of this encounter Visit Diagnoses Not on filedocumented in this encounter Additional Health Concerns Assessment Noted Time PHQ-9 Depression Total Score: 0 04/13/20 23 1:10 PM EDT documented as of this encounter Care Teams Candy Maker Helper Relationship Specialty Start Date End Date Gerri Bustamante MD [address] [place] [phone] PCP - General Family Medicine 09/03/18 documented as of this encounter
[2025-04-10 04:54] LABS: Rubella IgG Antibody 2.72 Index; Varicella IgG Antibody <1.00 S/CO
== END 2025-04-09 15:49 | disposition home or self-care (01) ==
LOC: HO.CHCLDS 15:48
PROVIDERS: Visit Provider Student in an Organized Health Care Education/Training Program
DX: Z23 Encounter for immunization (principal)
CPT/HCPCS: 36415; 86735; 86762; 86765; 86787